=== PATIENT | male | born 1950 ===

== ENCOUNTER → 2017-12-26 14:19 | Outpatient (CLI) | payer OTHER | END | disposition home or self-care (01) | LOC: LAB 14:19 | DX: R97.20 Elevated prostate specific antigen [PSA] (principal) ==

== ENCOUNTER 2018-01-17 07:20 | Outpatient (CLI) | payer OTHER | END 2018-01-17 07:26 | disposition home or self-care (01) | LOC: SONOGRAMA 07:20 | DX: R97.20 Elevated prostate specific antigen [PSA] (principal) ==